=== PATIENT | female | born 1955 | race African-American/Black ===

== ENCOUNTER 2017-09-11 14:36 | Emergency (ER) | payer MEDICAID, OTHER ==
[2017-09-11 18:23] VITALS: BP 124/62
[2017-09-11] MEDS ORDERED: IBUPROFEN 600 MG TAB PO ONE (18:45)
[2017-09-11] MEDS ORDERED: BACLOFEN 10 MG TAB PO ONE (18:45)
== END 2017-09-11 18:58 | disposition home or self-care (01) ==
LOC: EDBD 14:36 → ER 14:36
DX: S39.012A Strain of muscle, fascia and tendon of lower back, initial encounter (principal); S16.1XXA Strain of muscle, fascia and tendon at neck level, initial encounter; M79.1 Myalgia; V49.09XA Driver injured in collision with other motor vehicles in nontraffic accident, initial encounter; Y93.89 Activity, other specified; Y92.410 Unspecified street and highway as the place of occurrence of the external cause; Y99.8 Other external cause status
CPT/HCPCS: 72100; 72125